=== PATIENT | female | born 1990 | race American Indian/Alaskan Native ===

== ENCOUNTER 2016-07-15 13:13 | Emergency (ER) | payer MEDICAID ==
[2016-07-15 13:23] VITALS: BP 125/67; PULSE 70; RESP 16; TEMP 98; O2SAT 100
--- NOTE | 2016-07-15 13:53 | ED PDOC ---
HPI: Headache Chief Complaint (Provider): Headache History Per: Patient History/Exam Limitations: no limitations Onset/Duration Of Symptoms: Mins (2 hrs) Current Symptoms Are (Timing): Better Severity: Mild Pain Scale Rating Of: 2 Front/Back Head: 1 - temporal 2 - temporal Quality: Dull Preceeding Symptoms: None Associated Symptoms: Photophobia Additional Complaint(s): 25 yo homeless F w PMHx mild, intermittent asthma that presents to ER due to mild headache in b/l mu-ism regions. She states it came on a couple of hours before hospital presentation, and that it also occurred and resolved on it's own 2 days prior to visit. She denies aura, floaters, nausea, vomiting, the worst headache of her life, focal deficits, or problems speaking. She also states having previous diagnosis of schizoaffective disorder, but currently not receiving treatment, and is also in need of another albuterol inhaler despite not having any respiratory symptoms. Otherwise, she denies any fevers/chills, diarrhea, constipation, chest pain, SOB, dyspnea, cough, abdominal pain, or other myalgias. - Risk Factors SAH Risk Factors: Nest Degree Relative(s) W/SAH, Polycystic Kidney Disease, Sudden Onset Of Pain, Worst Headache Of Life <Hernandez Caraballo T - Last Filed: 07/15/16 14:07> Additional Complaint(s): Came to the ER for bp check as she had a mild headache. Now headache is better and almost gone. No numbness, tingles, weakness, chest pain. Not worst headache of her life. No neck pain. No weakness. Has not taken any meds for it. <Steve Chamberlain M - Last Filed: 07/15/16 14:24> Time Seen by Provider: 07/15/16 13:30 Chief Complaint (Nursing): Headache Past Medical History Vital Signs: Last Vital Signs Temp 98.0 F 07/15/16 13:20 Pulse 70 07/15/16 13:20 Resp 16 07/15/16 13:20 BP 125/67 07/15/16 13:20 Pulse Ox 100 07/15/16 13:20 - Medical History PMH: Asthma - Family History Family History: States: No Known Family Hx <Hernandez Caraballo - Last Filed: 07/15/16 14:07> Vital Signs: Last Vital Signs Temp 98.0 F 07/15/16 13:20 Pulse 70 07/15/16 13:20 Resp 16 07/15/16 13:20 BP 125/67 07/15/16 13:20 Pulse Ox 100 07/15/16 14:07 <Steve Chamberlain M - Last Filed: 07/15/16 14:24> - Home Medications Home Medications: Ambulatory Orders Medication Instructions Recorded Albuterol HFA [Ventolin HFA 90 2 puff IH [id number] #1 inhaler 07/15/16 mcg/actuation (8 g)] - Allergies Allergies/Adverse Reactions: Allergies Allergy/AdvReac Type Severity Reaction Status Date / Time honey Allergy ANAPHYLAXIS Verified 07/15/16 13:19 Review of Systems ROS Statement: Except As Marked, All Systems Reviewed And Found Negative (see HPI) <Hernandez Caraballo - Last Filed: 07/15/16 14:07> Physical Exam - Reviewed Nursing Documentation Reviewed: Yes Vital Signs Reviewed: Yes - Physical Exam Appears: Positive for: Well, No Acute Distress Head Exam: Positive for: ATRAUMATIC, NORMOCEPHALIC Skin: Positive for: Normal Color, Warm, Dry Eye Exam: Positive for: EOMI, PERRL Neck: Positive for: Normal, Painless ROM Cardiovascular/Chest: Positive for: Regular Rate, Rhythm. Negative for: Edema Respiratory: Positive for: Normal Breath Sounds. Negative for: Stridor, Wheezing Gastrointestinal/Abdominal: Positive for: Normal Exam, Soft. Negative for: Tenderness Back: Negative for: L CVA Tenderness, R CVA Tenderness Extremity: Positive for: Normal ROM. Negative for: Tenderness, Pedal Edema Neurologic/Psych: Positive for: Alert, brake adjuster II-XII, Oriented, Other (denies auditory or visual hallucinations, denies suicidal or homicidal thoughts). Negative for: Motor/Sensory Deficits, Facial Droop <Hernandez Caraballo - Last Filed: 07/15/16 14:07> - Physical Exam Neurologic/Psych: Positive for: Other <Steve Chamberlain - Last Filed: 07/15/16 14:24> - ECG O2 Sat by Pulse Oximetry: 100 - Progress ED Course And Treament: 25 yo F present to ER for acute, dull, 2/10 headache -Giving Tylenol -Will re evaluate and discharge accordingly <Hernandez Caraballo - Last Filed: 07/15/16 14:07> - ECG Pulse Ox Interpretation: Normal - Progress ED Course And Treament: 1421: Stable. AAOx3. Pain free. Tolerated po. Demanding refill of her asthma meds and benadryl. No vision changes. Ambulated with no issues. <Steve Chamberlain - Last Filed: 07/15/16 14:24> Disposition - Disposition Disposition: Routine/Home Disposition Time: 14:03 <Hernandez Caraballo - Last Filed: 07/15/16 14:07> - Disposition Disposition: Routine/Home <Steve Chamberlain - Last Filed: 07/15/16 14:24> - Clinical Impression Clinical Impression: Headache, Medication refill - Disposition Referrals: [facility] [Outside] - 07/16/16 Condition: IMPROVED Additional Instructions: Patient advised to properly hydrate herself, ~2L of water per day Suggested pt follow up w PMD within 1 week -Script for Albuterol HFA given ER precautions given and discussed Return to ER in 3 days if symptoms haven't resolved Prescriptions: Albuterol HFA [Ventolin HFA 90 mcg/actuation (8 g)] 2 puff IH [id number] #1 inhaler Instructions: Acute Headache (ED), Medicine Refill (ED)
== END 2016-07-15 14:50 | disposition home or self-care (01) ==
LOC: H.ER 13:13
DX: R51 Headache (principal)

== ENCOUNTER 2016-08-21 10:47 | Emergency (ER) | payer MEDICAID ==
[2016-08-21 10:52] VITALS: BP 107/60; PULSE 65; RESP 14; TEMP 98.2; O2SAT 99
[2016-08-21 10:53] VITALS: BMI 30.2
--- NOTE | 2016-08-21 11:09 | ED PDOC ---
HPI: General Adult Time Seen by Provider: 08/21/16 11:08 Chief Complaint (Nursing): Med Refill Chief Complaint (Provider): med rx request History Per: Patient Additional Complaint(s): 26-year-old female with no past medical history presents to emergency department requesting prescription for morning after pill. Patient had intercourse last night and states that the condom broke. Patient denies any abdominal pain or vaginal bleeding. Past Medical History Reviewed: Historical Data, Nursing Documentation, Vital Signs Vital Signs: Last Vital Signs Temp 98.2 F 08/21/16 10:51 Pulse 65 08/21/16 10:51 Resp 14 08/21/16 10:51 BP 107/60 08/21/16 10:51 Pulse Ox 99 08/21/16 11:24 - Medical History PMH: Asthma - Surgical History Other surgeries: knee surgery - Family History Family History: States: No Known Family Hx - Living Arrangements Living Arrangements: With Friends/Others - Social History Current smoker - smoking cessation education provided: Yes (sometimes) Alcohol: None Drugs: Denies - Home Medications Home Medications: Ambulatory Orders Medication Instructions Recorded Albuterol HFA [Ventolin HFA 90 2 puff IH [id number] #1 inhaler 07/15/16 mcg/actuation (8 g)] Levonorgestrel [Plan B One-Step] 1.5 mg PO ONCE #1 tab 08/21/16 - Allergies Allergies/Adverse Reactions: Allergies Allergy/AdvReac Type Severity Reaction Status Date / Time honey Allergy ANAPHYLAXIS Verified 08/21/16 11:03 Review of Systems ROS Statement: Except As Marked, All Systems Reviewed And Found Negative Constitutional: Negative for: Fever Gastrointestinal: Negative for: Abdominal Pain Genitourinary Female: Negative for: Vaginal Bleeding Physical Exam - Reviewed Nursing Documentation Reviewed: Yes Vital Signs Reviewed: Yes - Physical Exam Appears: Positive for: Well, Non-toxic, No Acute Distress Skin: Negative for: Rash Eye Exam: Positive for: Normal appearance Cardiovascular/Chest: Positive for: Regular Rate, Rhythm Respiratory: Positive for: Normal Breath Sounds Gastrointestinal/Abdominal: Positive for: Soft. Negative for: Tenderness, Distended, Guarding Neurologic/Psych: Positive for: Alert, Oriented - Laboratory Results Urine POC: Negative - ECG O2 Sat by Pulse Oximetry: 99 Pulse Ox Interpretation: Normal Medical Decision Making Medical Decision Makin26 year old female requesting rx for morning after pill Plan: test Rx for Plan B tablet provided. Patient was referred to [facility] for follow up. Disposition - Clinical Impression Clinical Impression: Medication requested, Morning after pill advice and prescription - Patient ED Disposition Is Patient to be Admitted: No Counseled Patient/Family Regarding: Need For Followup, Rx Given - Disposition [facility]] Disposition: Routine/Home Disposition Time: 11:18 Condition: STABLE Additional Instructions: Take rx meds as directed. Follow up with women[facility] clinic as needed. Prescriptions: Levonorgestrel [Plan B One-Step] 1.5 mg PO ONCE #1 tab Instructions: Levonorgestrel (By mouth), Safe Sex (ED)
== END 2016-08-21 11:39 | disposition home or self-care (01) ==
LOC: H.ER 10:47
DX: Z02.89 Encounter for other administrative examinations (principal)